=== PATIENT | female | born 1970 | race Caucasian/White ===

== ENCOUNTER 2020-01-31 14:30 | Emergency (ER) | payer OTHER, SELFPAY ==
--- NOTE | ~2020-01-31 | XR_ITS ---
EXAMINATION: XR foot RT min 3V DATE: 01/31/2020 15:14 INDICATION: Lateral right foot pain. TECHNIQUE: 4 views of right foot were obtained. COMPARISON: None. FINDINGS: There is moderate hallux valgus. Forefoot varus is noted. There is a transverse fracture of proximal diaphysis of fifth metatarsal. The distal fracture fragment demonstrates 15 degrees dorsal medial angulation and 3 mm dorsal displacement. There is mild osteoarthritis of first metatarsophalan geal joint and some of the midfoot joints. There are enthesophytes at the posterior and plantar aspec ts of calcaneal tuberosity. IMPRESSION: 1. Transverse fracture of proximal diaphysis of fifth metatarsal. Reviewed, dictated and finalized at location A.
[2020-01-31 14:53] VITALS: BP 98/60; PULSE 86; RESP 18; TEMP 36.4; O2SAT 100
--- NOTE | 2020-01-31 15:09 | ED.LOWEXIN ---
HPI - Extremity Injury (Lower) General Chief Complaint: Extremity Injury, Lower Stated Complaint: R/foot broken Time Seen by Provider: 01/31/20 15:09 Source: patient Mode of arrival: ambulatory Limitations: no limitations History of Present Illness HPI Narrative: Joie Ding is a 50 yo female with a PMH of gout, anxiety, depression, GERD, high cholesterol, hypothyroid, high blood pressure, comes to the [facility] with complaints of right foot pain after hearing a pop while picking up a cat last night at home. Pain on walking Related Data Home Medications Medication Instructions Recorded Confirmed Fish Oil 01/31/20 Probiotic 01/31/20 Vraylar 01/31/20 01/31/20 allopurinol 01/31/20 alprazolam 01/31/20 aripiprazole mg 01/31/20 atorvastatin 01/31/20 ciclopirox TOPICAL 01/31/20 cyclobenzaprine mg 01/31/20 duloxetine mg PO 01/31/20 furosemide 01/31/20 gabapentin 01/31/20 levothyroxine 01/31/20 magnesium 01/31/20 metoprolol tartrate 01/31/20 multivitamin 01/31/20 nortriptyline 01/31/20 ondansetron 01/31/20 oxycodone-acetaminophen 01/31/20 potassium chloride meq 01/31/20 spironolactone 01/31/20 trazodone 01/31/20 Allergies Allergy/AdvReac Type Severity Reaction Status Date / Time Penicillins Allergy Unknown Verified 03/03/16 10:49 venlafaxine Allergy Unknown Verified 03/03/16 10:49 Review of Systems Review of Systems: Narrative: CONSTITUTIONAL: Denies fever, chills, sweats. EYES: Denies visual changes, redness, discharge. ENT: Denies rhinorrhea, congestion, sore throat, otalgia. CARDIOVASCULAR: Denies chest pain, palpitations, edema. RESPIRATORY: Denies dyspnea, wheezing, cough GASTROINTESTINAL: Denies abdominal pain, nausea, vomiting, diarrhea. GENITOURINARY: Denies dysuria, hematuria, abnormal discharge SKIN: Denies rash or itching. NEUROLOGIC: Denies numbness, or focal weakness. PSYCHIATRIC: Denies anxiety or depression. [facility] Family History Family History Other Diabetes mellitus Family history of arthritis Family history of blood dyscrasia Family history of cardiovascular disease Family history of gout Family history of malignant neoplasm Family history of mental disorder Hypertension Social History Social History (Updated 01/31/20 @ 15:23 by Erlinda Feliciano CNP) Smoking packs per day: 0.5 Smoking cigarettes per day: 10.0 Smoking status: Current every day smoker Smoking end date: 11/07/14 Alcohol intake: current Comments At time of signature, I agree with nursing past medical, surgical, social and family history. There is no relevant family history pertinent to the presenting complaint. Exam Narrative: Exam Narrative: GENERAL: This is a well-nourished, well-developed patient, in no apparent distress. HEAD: normocephalic, atraumatic. EYES: PERRL. Sclera clear/white. Vision is grossly intact. EARS: External ears normal, auditory canals clear and without drainage, TMs normal without perforation. Hearing grossly intact. NOSE: External nose normal with no obvious nasal discharge, nares without redness, no rhinorrhea. THROAT: Mucous membranes moist, posterior pharynx clear. NECK: Neck supple, non-tender without lymphadenopathy, masses or thyromegaly. CARDIOVASCULAR: Regular rate and rhythm without murmurs, gallops, or rubs. RESPIRATORY: Clear to auscultation. Breath sounds equal bilaterally. No wheezes, rales, or rhonchi. GASTROINTESTINAL: Abdomen soft, non-tender, nondistended. Bowel sounds are active. No hepato-splenomegaly, or palpable masses. No guarding. SKIN: warm, intact with no suspicious lesions or rash, good texture and turgor. NEURO: awake, alert, and oriented to person, place and time. There were no obvious focal neurologic abnormalities. Steady gait EXTREMITIES: Normal range of motion. No edema. No calf tenderness. Negative Homans sign bilaterally. BACK: Nontender wit
== END 2020-01-31 15:36 | disposition home or self-care (01) ==
PROVIDERS: Emergency Provider Nurse Practitioner
DX: S92.351A Displaced fracture of fifth metatarsal bone, right foot, initial encounter for closed fracture (principal); X50.0XXA Overexertion from strenuous movement or load, initial encounter; F17.210 Nicotine dependence, cigarettes, uncomplicated; M10.9 Gout, unspecified; F41.9 Anxiety disorder, unspecified; F32.9 Major depressive disorder, single episode, unspecified; K21.9 Gastro-esophageal reflux disease without esophagitis; E03.9 Hypothyroidism, unspecified; I10 Essential (primary) hypertension
CPT/HCPCS: 73630; 99214; G0463